=== PATIENT | female | born 1970 ===

== ENCOUNTER 2017-03-02 18:27 | Emergency (ER) | payer SELFPAY ==
[~2017-03-02] VITALS: Ht 152.4 cm; Wt 92.0 kg
[2017-03-02 18:34] VITALS: Ht 152.4 cm; Wt 92.0 kg
== END 2017-03-03 00:50 | disposition left against medical advice (07) ==
LOC: FTE 18:27
DX: Z53.21 Procedure and treatment not carried out due to patient leaving prior to being seen by health care provider (principal)